=== PATIENT | female | born 1995 | race Two or more races ===

== ENCOUNTER 2019-12-30 19:33 | Observation (INO) | payer SELFPAY ==
[2019-12-30] MEDS ORDERED: IV RINGERS,LACTATED 1000ML 1,000 ML IV SCH (19:35)
[2019-12-30 20:07] LABS: BILIRUBIN,URINE NEGATIVE (NEG); COLOR,URINE YELLOW; NITRITE,URINE NEGATIVE (NEG); PROTEIN,URINE NEGATIVE (NEG-TRACE); UROBILINOGEN,URINE 0.2 mg/dL (0.2 mg/dL)
[2019-12-30 20:21] LABS: CLARITY,URINE CLEAR
[2019-12-30 20:23] LABS: BACTERIA,URINE FEW /HPF (0-FEW); RBC,URINE 0 /HPF (0-2); SQUAMOUS EPITHELIAL CELL,UR FEW /LPF; WBC,URINE 0 /HPF (0-4)
== END 2019-12-30 21:20 | disposition home or self-care (01) ==
LOC: 3 SO LND 19:33
PROVIDERS: ADMIT Obstetrics & Gynecology; ATTEND Obstetrics & Gynecology
DX: O36.8130 Decreased fetal movements, third trimester, not applicable or unspecified (principal); Z3A.36 36 weeks gestation of pregnancy
CPT/HCPCS: 81001; G0378; G0379; 59025

== ENCOUNTER 2020-01-09 16:50 | Inpatient (IN) | payer SELFPAY ==
[~2020-01-09] VITALS: Ht 154.9 cm; Wt 63.0 kg
[2020-01-09] MEDS ORDERED: IV RINGERS,LACTATED 1000ML 1,000 ML IV PRN (17:15)
[2020-01-09 17:25] LABS: BILIRUBIN,URINE NEGATIVE (NEG); CLARITY,URINE CLEAR; COLOR,URINE YELLOW; NITRITE,URINE NEGATIVE (NEG); PROTEIN,URINE NEGATIVE (NEG-TRACE)
[2020-01-09 17:35] LABS: BACTERIA,URINE FEW /HPF (0-FEW); SQUAMOUS EPITHELIAL CELL,UR MOD /LPF
[2020-01-09] MEDS ORDERED: ACETAMINOPHEN 500 MG TABLET PO PRN (19:30)
[2020-01-09] MEDS ORDERED: MAG HYDROX/ALUMINUM HYD/SIMETH 30 ML ORAL.SUSP PO PRN (19:30)
[2020-01-09] MEDS ORDERED: ONDANSETRON PF 4 MG/2 ML VIAL. IVP PRN (19:30)
[2020-01-09] MEDS ORDERED: diphenhydrAMINE HCL 25 MG CAPSULE PO PRN (19:30)
[2020-01-09] MEDS: IV RINGERS,LACTATED 1000ML 1,000 ML IV PRN ×2 (20:14→23:05)
[2020-01-09 20:26] LABS: BASO % 0 % (0-3); EOS # 0.2 x10^3/uL (0.0-0.7); EOS % 1 % (0-3); HEMATOCRIT 34.3 % (36.0-47.0); HEMOGLOBIN 11.6 g/dL (12.0-15.5); LYMPH # 2.7 x10^3/uL (1.0-4.8); LYMPH % 24 % (24-48); MEAN CORPUSCULAR HEMOGLOBIN 30 pg (25-35); MEAN CORPUSCULAR HGB CONC 34 g/dL (31-37); MEAN CORPUSCULAR VOLUME 87 fL (79-100); MONO # 0.9 x10^3/uL (0.0-1.1); MONO % 8 % (0-9); NEUT # 7.2 x10^3/uL (1.8-7.7); NEUT % 66 % (31-73); PLATELET COUNT 295 x10^3/uL (140-400); RED BLOOD COUNT 3.92 x10^6/uL (3.50-5.40); RED CELL DISTRIBUTION WIDTH 13.5 % (11.5-14.5)
[2020-01-09 20:39] LABS: ALBUMIN 2.6 g/dL (3.4-5.0); ALBUMIN/GLOBULIN RATIO 0.6 (1.0-1.7); CALCIUM 8.8 mg/dL (8.5-10.1); CREATININE 0.6 mg/dL (0.6-1.0); GFR 121.8; POTASSIUM 3.8 mmol/L (3.5-5.1); TOTAL BILIRUBIN 0.2 mg/dL (0.2-1.0); TOTAL PROTEIN 6.7 g/dL (6.4-8.2)
[2020-01-09 20:45] LABS: INFLUENZA A PATIENT NEGATIVE (NEGATIVE); INFLUENZA B PATIENT NEGATIVE (NEGATIVE)
[2020-01-09 21:59] VITALS: BP 110/65
[2020-01-09] MEDS ORDERED: LIDOCAINE 1% PF 30 ML VIAL. INJ PRN (22:30)
[2020-01-09] MEDS ORDERED: fentaNYL PF VIAL 100 MCG/2 ML VIAL IV PRN (22:30)
[2020-01-09] MEDS ORDERED: TERBUTALINE 1 MG/ML VIAL. SQ PRN (22:30)
[2020-01-09] MEDS ORDERED: 0.9 % SODIUM CHLORIDE 10 ML DISP.SYRIN. IV PRN (22:30)
[2020-01-09] MEDS ORDERED: IBUPROFEN 400 MG TABLET. PO PRN (22:30)
[2020-01-09] MEDS ORDERED: OXYTOCIN 30 UNIT/500 ML PREMIX 500 ML IV PRN (22:30)
[2020-01-09] MEDS ORDERED: PENICILLIN G K 5,000,000 UNIT in IV DEXTROSE 5% 100ML 100 ML IV ONE (23:00)
[2020-01-10] MEDS: PENICILLIN G K 2,500,000 UNIT in IV DEXTROSE 5% 50 ML IV SCH ×3 (03:06→11:24)
[2020-01-10] MEDS: IV RINGERS,LACTATED 1000ML 1,000 ML IV PRN (04:32)
--- NOTE | 2020-01-10 08:37 | PDOC1 ---
OB - History Hx of Present Care: Good Care Ultrasounds: Normal mid trimester US Obstetrical Complications: None Medical Complications: None Past Family/Social History * Past Medical, Surgical, Family and Obstetric Histories reviewed from chart. Rubella: Immune RPR/VDRL: Negative GBS Status: Positive HBsAG: Negative OB - Chief Complaint & HPI Date of Admission: Date of Admission: Jan 09, 2020 at 16:50 Chief Complaint/History : 2 Para: 1 EGA: 38 Reason for admission: active labor Admission Nurse Assessment Rev: Yes OB - Admission Exam Physical Exam Vitals: VS - Last 72 Hours, by Label Date Time Temp Pulse Resp B/P (MAP) Pulse Ox O2 Delivery O2 Flow Rate FiO2 01/09/20 23:40 18 01/09/20 23:05 18 01/09/20 21:59 98.0 112 18 110/65 (80) Room Air 98.0 HEENT: Normal Heart: Regular Rate Lungs: Clear Abdomen: Gravid, Non tender, Soft Extremities: Edema Reflexes: Normal Cervical Dilatation: 4cm Effacement: 75% Station: -3 Membranes: Intact Heart Rate: Normal Accelerations: Accelerations Present Decelerations: No decelerations Contractions on Admission: < 5 Minutes Apart Intensity: Firm Text A: 38 wks IUP GBS positive P: Admit for labor management. Start Pen G prophylaxis. SHAZIA BAUTISTA Jr, MD Jan 10, 2020 08:37
[2020-01-10] MEDS ORDERED: L&D EPIDURAL SYRINGE 50 ML ONE (09:10)
[2020-01-10] MEDS ORDERED: ROPIVacaine 0.2% PF 10 ML VIAL. ONE ×2 (09:10)
[2020-01-10] MEDS ORDERED: IV RINGERS,LACTATED 1000ML 1,000 ML IV SCH (09:17)
[2020-01-10] MEDS ORDERED: L&D EPIDURAL SYRINGE 50 ML EPID PRN (09:30)
[2020-01-10] MEDS ORDERED: NALOXONE 0.4 MG/ML VIAL. IV PRN (09:30)
[2020-01-10] MEDS ORDERED: ROPIVacaine 0.2% PF 10 ML VIAL. EPID PRN (09:30)
[2020-01-10] MEDS ORDERED: diphenhydrAMINE 50 MG/ML VIAL IV PRN (09:30)
[2020-01-10] MEDS ORDERED: BUPIVACAINE MPF 0.25% 30 ML VIAL. ONE (10:18)
[2020-01-10] MEDS ORDERED: ePHEDrine PF IN SALINE 50 MG/10 ML SYRINGE. IV ONE ×2 (10:26→16:00)
--- NOTE | 2020-01-10 13:04 | PDOC ---
VAGINAL DELIVERY DATE DATE: 01/10/20 TIME: 13:02 : 2 Para: 2 EGA: 38 VAGINAL DELIVERY: VTX VACCUM ASSISTED: No PLACENTA: Spontaneous 8/9 SEX: Male WEIGHT Weight [ pending ] Nuchal Cord: No Amniotic Fluid: Clear PAIN: Epidural EPISIOTOMY: No EXTENSION: Yes (Right vaginal laceration) REPAIRED WITH 2-0 vicryl EBL 400 ml COMPLICATIONS none Signs of Intrauterine Infectio: None Shoulder Dystocia: No SHAZIA BAUTISTA Jr, MD Jan 10, 2020 13:04
[2020-01-10] MEDS ORDERED: MMR per PROTOCOL. MC PRN (13:15)
[2020-01-10] MEDS ORDERED: diphenhydrAMINE HCL 25 MG CAPSULE PO PRN (13:15)
[2020-01-10] MEDS ORDERED: 0.9 % SODIUM CHLORIDE 10 ML DISP.SYRIN. IV PRN (13:15)
[2020-01-10] MEDS ORDERED: OXYTOCIN 30 UNIT/500 ML PREMIX 500 ML IV PRN (13:15)
[2020-01-10] MEDS ORDERED: ZOLPIDEM 5 MG TABLET. PO PRN (13:15)
[2020-01-10] MEDS ORDERED: ACETAMINOPHEN 325 MG TABLET. PO PRN (13:15)
[2020-01-10] MEDS ORDERED: PHENYLEPH/MINERAL OIL/PETROLAT RECTAL OINTMENT TUBE. RC PRN (13:15)
[2020-01-10] MEDS ORDERED: HYDROCORTISONE 1% TOPICAL OINTMENT 30GM TUBE. TP PRN (13:15)
[2020-01-10] MEDS ORDERED: SIMETHICONE 80 MG TAB.CHEW PO PRN (13:15)
[2020-01-10] MEDS ORDERED: MAG HYDROX/ALUMINUM HYD/SIMETH 30 ML ORAL.SUSP PO PRN (13:15)
[2020-01-10] MEDS ORDERED: BENZOCAINE 20% TOPICAL AEROSOL SPRAY 57GM CAN. TP PRN (13:15)
[2020-01-10] MEDS ORDERED: MAGNESIUM HYDROXIDE 2,400 MG/30 ML ORAL.SUSP. PO PRN (13:15)
[2020-01-10 15:20] VITALS: BP 110/63
[2020-01-10] MEDS: IBUPROFEN 400 MG TABLET. PO PRN ×2 (15:33→23:52)
[2020-01-10] MEDS ORDERED: BUPIVACAINE MPF 0.25% 30 ML VIAL. EPID ONE (16:00)
[2020-01-10 16:30] VITALS: BP 106/57
[2020-01-10] MEDS: oxyCODONE/APAP 5/325 1 TAB TABLET PO PRN (22:14)
[2020-01-10 22:19] VITALS: BP 106/72
[2020-01-11 04:08] VITALS: BP 100/70
[2020-01-11 05:21] LABS: BASO % 0 % (0-3); EOS # 0.1 x10^3/uL (0.0-0.7); EOS % 1 % (0-3); HEMATOCRIT 29.5 % (36.0-47.0); LYMPH # 3.8 x10^3/uL (1.0-4.8); LYMPH % 28 % (24-48); MEAN CORPUSCULAR HEMOGLOBIN 30 pg (25-35); MEAN CORPUSCULAR HGB CONC 34 g/dL (31-37); MEAN CORPUSCULAR VOLUME 88 fL (79-100); MONO # 1.5 x10^3/uL (0.0-1.1); MONO % 11 % (0-9); NEUT # 8.1 x10^3/uL (1.8-7.7); NEUT % 60 % (31-73); PLATELET COUNT 223 x10^3/uL (140-400); RED BLOOD COUNT 3.33 x10^6/uL (3.50-5.40); RED CELL DISTRIBUTION WIDTH 13.6 % (11.5-14.5); WHITE BLOOD COUNT 13.5 x10^3/uL (4.0-11.0)
--- NOTE | 2020-01-11 08:20 | PDOC ---
OB Progress Note Date of Service 01/11/20 Time of Evaluation 0820 Notes Pt. feeling well. No complaints. Lab Laboratory Tests Test 01/09/20 17:00 01/09/20 19:50 01/09/20 20:10 01/11/20 05:04 Urine Collection Type Unknown Urine Color Yellow Urine Clarity Clear Urine pH 7.0 Urine Specific [place] 1.015 Urine Protein Negative mg/dL (NEG-TRACE) Urine Glucose (UA) Negative mg/dL (NEG) Urine Ketones (Stick) Negative mg/dL (NEG) Urine Blood Negative (NEG) Urine Nitrite Negative (NEG) Urine Bilirubin Negative (NEG) Urine Urobilinogen Dipstick 1.0 mg/dL (0.2 mg/dL) Urine Leukocyte Esterase Trace (NEG) Urine RBC 1-2 /HPF (0-2) Urine WBC 1-4 /HPF (0-4) Urine Squamous Epithelial Cells Mod /LPF Urine Bacteria Few /HPF (0-FEW) White Blood Count 11.0 x10^3/uL (4.0-11.0) 13.5 x10^3/uL (4.0-11.0) Red Blood Count 3.92 x10^6/uL (3.50-5.40) 3.33 x10^6/uL (3.50-5.40) Hemoglobin 11.6 g/dL (12.0-15.5) 10.0 g/dL (12.0-15.5) Hematocrit 34.3 % (36.0-47.0) 29.5 % (36.0-47.0) Mean Corpuscular Volume 87 fL (79-100) 88 fL (79-100) Mean Corpuscular Hemoglobin 30 pg (25-35) 30 pg (25-35) Mean Corpuscular Hemoglobin Concent 34 g/dL (31-37) 34 g/dL (31-37) Red Cell Distribution Width 13.5 % (11.5-14.5) 13.6 % (11.5-14.5) Platelet Count 295 x10^3/uL (140-400) 223 x10^3/uL (140-400) Neutrophils (%) (Auto) 66 % (31-73) 60 % (31-73) Lymphocytes (%) (Auto) 24 % (24-48) 28 % (24-48) Monocytes (%) (Auto) 8 % (0-9) 11 % (0-9) Eosinophils (%) (Auto) 1 % (0-3) 1 % (0-3) Basophils (%) (Auto) 0 % (0-3) 0 % (0-3) Neutrophils # (Auto) 7.2 x10^3/uL (1.8-7.7) 8.1 x10^3/uL (1.8-7.7) Lymphocytes # (Auto) 2.7 x10^3/uL (1.0-4.8) 3.8 x10^3/uL (1.0-4.8) Monocytes # (Auto) 0.9 x10^3/uL (0.0-1.1) 1.5 x10^3/uL (0.0-1.1) Eosinophils # (Auto) 0.2 x10^3/uL (0.0-0.7) 0.1 x10^3/uL (0.0-0.7) Basophils # (Auto) 0.0 x10^3/uL (0.0-0.2) 0.0 x10^3/uL (0.0-0.2) Sodium Level 134 mmol/L (136-145) Potassium Level 3.8 mmol/L (3.5-5.1) Chloride Level 101 mmol/L (98-107) Carbon Dioxide Level 21 mmol/L (21-32) Anion Gap 12 (6-14) Blood Urea Nitrogen 8 mg/dL (7-20) Creatinine 0.6 mg/dL (0.6-1.0) Estimated GFR (Cockcroft-Gault) 121.8 BUN/Creatinine Ratio 13 (6-20) Glucose Level 76 mg/dL (70-99) Calcium Level 8.8 mg/dL (8.5-10.1) Total Bilirubin 0.2 mg/dL (0.2-1.0) Aspartate Amino Transf (AST/SGOT) 14 U/L (15-37) Alanine Aminotransferase (ALT/SGPT) 9 U/L (14-59) Alkaline Phosphatase 121 U/L (46-116) Total Protein 6.7 g/dL (6.4-8.2) Albumin 2.6 g/dL (3.4-5.0) Albumin/Globulin Ratio 0.6 (1.0-1.7) Treponema pallidum Antibody Nonreactive (Nonreactive) Influenza Type A Antigen Negative (NEGATIVE) Influenza Type B Antigen Negative (NEGATIVE) Laboratory Tests Test 01/11/20 05:04 White Blood Count 13.5 x10^3/uL (4.0-11.0) Red Blood Count 3.33 x10^6/uL (3.50-5.40) Hemoglobin 10.0 g/dL (12.0-15.5) Hematocrit 29.5 % (36.0-47.0) Mean Corpuscular Volume 88 fL (79-100) Mean Corpuscular Hemoglobin 30 pg (25-35) Mean Corpuscular Hemoglobin Concent 34 g/dL (31-37) Red Cell Distribution Width 13.6 % (11.5-14.5) Platelet Count 223 x10^3/uL (140-400) Neutrophils (%) (Auto) 60 % (31-73) Lymphocytes (%) (Auto) 28 % (24-48) Monocytes (%) (Auto) 11 % (0-9) Eosinophils (%) (Auto) 1 % (0-3) Basophils (%) (Auto) 0 % (0-3) Neutrophils # (Auto) 8.1 x10^3/uL (1.8-7.7) Lymphocytes # (Auto) 3.8 x10^3/uL (1.0-4.8) Monocytes # (Auto) 1.5 x10^3/uL (0.0-1.1) Eosinophils # (Auto) 0.1 x10^3/uL (0.0-0.7) Basophils # (Auto) 0.0 x10^3/uL (0.0-0.2) Medications Current Medications Ringer's Solution 1,000 ml @ 125 mls/hr Q8H PRN IV PER PROTOCOL; Start 01/09/20 at 17:15; Stop 01/11/20 at 00:06; Status DC Diphenhydramine HCl (Benadryl) 50 mg PRN QHS PRN PO INSOMNIA; Start 01/09/20 at 19:30 Ringer's Solution 1,000 ml @ 125 mls/hr CONT PRN PRN IV hydration Last administered on 01/10/20at 04:32; Start 01/09/20 at 19:30 Acetaminophen (Tylenol) 1,000 mg PRN Q6HRS PRN PO PAIN; Start 01/09/20 at 19:30; Stop 01/10/20 at 13:07; Status DC Ondansetron HCl (Zofran) 8 mg PRN Q8HRS PRN IVP NAUSEA/VOMITING; Start 01/09/20 at 19:30; Stop 01/11/20 at 00:06; Status DC Al Hydroxide/Mg Hydroxide (Mylanta Plus Xs) 30 ml PRN Q2HR PRN PO HEARTBURN / GAS; Start 01/09/20 at 19:30; Stop 01/11/20 at 00:06; Status DC Sodium Chloride (Normal Saline Flush) 3 ml QSHIFT PRN IV AFTER MEDS AND BLOOD DRAWS; Start 01/09/20 at 22:30; Stop 01/10/20 at 13:07; Status DC Fentanyl Citrate (Fentanyl 2ml Vial) 100 mcg PRN Q30MIN PRN IV Severe pain Last administered on 01/09/20at 23:05; Start 01/09/20 at 22:30; Stop 01/11/20 at 00:06; Status DC Terbutaline Sulfate (Brethine) 0.25 mg 1X PRN PRN SQ SEE COMMENTS; Start 01/09/20 at 22:30; Stop 01/10/20 at 22:29; Status DC Lidocaine HCl (Xylocaine 1% Pf 30ml Vial) 30 ml 1X PRN PRN INJ SEE COMMENTS; Start 01/09/20 at 22:30; Stop 01/11/20 at 00:06; Status DC Oxytocin/Sodium Chloride 500 ml @ 0 mls/hr CONT PRN PRN IV Post delivery bleeding Last administered on 01/10/20at 06:54; Start 01/09/20 at 22:30 Ibuprofen (Motrin) 800 mg PRN Q6HRS PRN PO MODERATE PAIN 4-6; Start 01/09/20 at 22:30; Stop 01/10/20 at 13:07; Status DC Penicillin G Potassium [id number] unit/Dextrose 100 ml @ 100 mls/hr 1X ONCE IV Last administered on 01/09/20at 23:06; Start 01/09/20 at 23:00; Stop 01/09/20 at 23:59; Status DC Penicillin G Potassium [id number] unit/Dextrose 50 ml @ 100 mls/hr Q4H IV Last administered on 01/10/20at 11:24; Start 01/10/20 at 03:00; Stop 01/11/20 at 00:06; Status DC Fentanyl Citrate 50 ml @ As Directed STK-MED ONCE .ROUTE ; Start 01/10/20 at 09:10; Stop 01/10/20 at 09:10; Status DC Ropivacaine (Naropin 0.2%) 10 ml STK-MED ONCE .ROUTE ; Start 01/10/20 at 09:10; Stop 01/10/20 at 09:11; Status DC Ringer's Solution 1,000 ml @ 1,000 mls/hr Q1H IV Last administered on 01/10/20at 11:25; Start 01/10/20 at 09:17; Stop 01/10/20 at 10:16; Status DC Naloxone HCl (Narcan) 0.04 mg PRN Q1MIN PRN IV SEE COMMENTS; Start 01/10/20 at 09:30; Stop 01/11/20 at 00:06; Status DC Fentanyl Citrate 50 ml @ 14 mls/hr CONT PRN EPID PAIN Last administered on 01/10/20at 11:30; Start 01/10/20 at 09:30; Stop 01/11/20 at 00:06; Status DC Diphenhydramine HCl (Benadryl) 12.5 mg PRN Q2HR PRN IV ITCHING; Start 01/10/20 at 09:30; Stop 01/11/20 at 00:06; Status DC Ropivacaine (Naropin 0.2%) 20 ml 1X PRN PRN EPID PER ANESTHESIA; Start 01/10/20 at 09:30; Stop 01/11/20 at 00:06; Status DC Bupivacaine HCl (Sensorcaine Mpf 0.25%) 30 ml STK-MED ONCE .ROUTE ; Start 01/10/20 at 10:18; Stop 01/10/20 at 10:18; Status DC Ephedrine Sulfate (ePHEDrine PF IN SALINE SYRINGE) 50 mg STK-MED ONCE IV ; Start 01/10/20 at 10:26; Stop 01/10/20 at 10:26; Status DC Sodium Chloride (Normal Saline Flush) 10 ml QSHIFT PRN IV AFTER MEDS AND BLOOD DRAWS; Start 01/10/20 at 13:15 Oxytocin/Sodium Chloride 500 ml @ 62.5 mls/hr CONT PRN IV SEE I/O RECORD; Start 01/10/20 at 13:15; Stop 01/10/20 at 21:14; Status DC Acetaminophen (Tylenol) 650 mg PRN Q6HRS PRN PO MILD PAIN / TEMP; Start 01/10/20 at 13:15 Ibuprofen (Motrin) 800 mg PRN Q8HRS PRN PO INFLAMMATION/PAIN PREVENTION Last administered on 01/10/20at 23:52; Start 01/10/20 at 13:15 Docusate Sodium (Colace) 100 mg PRN BID PRN PO CONSTIPATION; Start 01/10/20 at 13:15 Magnesium Hydroxide (Milk Of Magnesia) 2,400 mg PRN DAILY PRN PO CONSTIPATION; Start 01/10/20 at 13:15 Al Hydroxide/Mg Hydroxide (Mylanta Plus Xs) 30 ml PRN Q4HRS PRN PO HEARTBURN / GAS; Start 01/10/20 at 13:15 Simethicone (Gas-X) 80 mg PRN AFTMEALHC PRN PO GAS / BLOATING; Start 01/10/20 at 13:15 Diphenhydramine HCl (Benadryl) 25 mg PRN Q6HRS PRN PO ITCHING; Start 01/10/20 at 13:15; Stop 01/11/20 at 00:06; Status DC Benzocaine (Americaine) 1 spray PRN QID PRN TP TOPICAL PAIN Last administered on 01/10/20at 15:33; Start 01/10/20 at 13:15 Phenyleph/Shark Oil/Min Oil/Petrol (Preparation H) 1 ana PRN QID PRN RC RECTAL PAIN; Start 01/10/20 at 13:15 Hydrocortisone (Cortaid) 1 ana PRN QID PRN TP PERINEAL PAIN; Start 01/10/20 at 13:15 Ferrous Sulfate (Feosol) 325 mg BIDWMEALS PO ; Start 01/10/20 at 17:00 Zolpidem Tartrate (Ambien) 5 mg PRN QHS PRN PO INSOMNIA, MAY REPEAT X1; Start 01/10/20 at 13:15 Info (Do NOT chart on this placeholder) 1 ea 1X PRN PRN MC SEE COMMENTS; Start 01/10/20 at 13:15; Stop 01/11/20 at 00:06; Status DC Info (Do NOT chart on this placeholder) 1 ea 1X PRN PRN MC SEE COMMENTS; Start 01/10/20 at 13:15; Stop 01/11/20 at 00:06; Status DC Oxycodone/ Acetaminophen (Percocet 5/325) 2 tab PRN Q4HRS PRN PO MODERATE PAIN, SEVERE PAIN Last administered on 01/10/20at 22:14; Start 01/10/20 at 13:15 Bupivacaine HCl (Sensorcaine Mpf 0.25%) 30 ml 1X ONCE EPID Last administered on 01/10/20at 15:59; Start 01/10/20 at 16:00; Stop 01/11/20 at 00:06; Status DC Ephedrine Sulfate (ePHEDrine PF IN SALINE SYRINGE) 50 mg 1X ONCE IV Last administered on 01/10/20at 15:59; Start 01/10/20 at 16:00; Stop 01/11/20 at 00:06; Status DC Exam Abd: soft, non tender, fundus firm Assessment PPD#1 s/p Plan of Care: Continue current Tx, Mgmt SHAZIA BAUTISTA Jr, MD Jan 11, 2020 08:20
[2020-01-11 08:45] VITALS: BP 107/65
[2020-01-11] MEDS: DOCUSATE SODIUM 100 MG CAPSULE. PO PRN ×2 (09:17→20:18)
[2020-01-11] MEDS: FERROUS SULFATE 325 MG TABLET. PO SCH ×3 (09:19→17:00)
[2020-01-11] MEDS: IBUPROFEN 400 MG TABLET. PO PRN ×2 (09:19→16:25)
[2020-01-11 16:15] VITALS: BP 87/47
[2020-01-11] MEDS: oxyCODONE/APAP 5/325 1 TAB TABLET PO PRN (20:07)
[2020-01-11 22:31] VITALS: BP 108/78
[2020-01-12] MEDS: IBUPROFEN 400 MG TABLET. PO PRN ×2 (02:03→09:43)
[2020-01-12 06:04] VITALS: BP 117/63
--- NOTE | 2020-01-12 07:48 | PDOC3 ---
OB DISCHARGE SUMMARY DATE OF ADMISSION: 01/10/20 DATE OF DISCHARGE: 01/12/20 REASON FOR ADMISSION: Onset of labor INTRAPARTUM PROCEDURES: Spontanous Vag Deliv DISCHARGE DIAGNOSIS: Term Delivered DISCHARGE INFORMATION: Activity (ad rosmery), Diet (regular), Instructions (pelvic rest x 6 wks) HOSPITAL COURSE Term gestation delivered vaginally without complications. SHAZIA BAUTISTA Jr, MD Jan 12, 2020 07:48
[2020-01-12] MEDS ORDERED: IBUP-1027 PO (07:49)
--- NOTE | 2020-01-12 07:49 | DISCH ---
DISCHARGE INSTRUCTIONS Condition on Discharge Condition on Discharge: Stable Activity After Discharge Activity Instructions for Disc: Activity as tolerated Lifting Instructions after Dis: No heavy lifting Driving Instructions after Dis: Do not drive today Diet after Discharge Diet after Discharge: Regular Contacting the DRLyle after DC Call your doctor for: Concerns you may have Follow-Up Follow up with: Erna in 6 wks SHAZIA BAUTISTA Jr, MD Jan 12, 2020 07:49
[2020-01-12] MEDS: FERROUS SULFATE 325 MG TABLET. PO SCH (09:43)
[2020-01-12 09:44] VITALS: BP 91/58
[2020-01-12] MEDS: DOCUSATE SODIUM 100 MG CAPSULE. PO PRN (09:44)
[2020-01-12 14:20] VITALS: BP 104/65
--- NOTE | 2020-01-12 14:30 | NUR ---
Discharge and follow up instructions reviewed with pt. Pt denied any questions at time of discharge. Pt taken out of hospital per W/C.
== END 2020-01-12 14:30 | disposition home or self-care (01) | DRG 807 ==
LOC: 3 SO LND 16:50 → OBSVTOIN 16:50 → 3 NORTH 01-10 16:30
PROVIDERS: ADMIT Obstetrics & Gynecology; ATTEND Obstetrics & Gynecology
PROC: 10E0XZZ Delivery of Products of Conception, External Approach (ICD-10-PCS; principal; 2020-01-09)
PROC: 3E0R3BZ Introduction of Anesthetic Agent into Spinal Canal, Percutaneous Approach (ICD-10-PCS; 2020-01-09)
PROC: 00HU33Z Insertion of Infusion Device into Spinal Canal, Percutaneous Approach (ICD-10-PCS; 2020-01-09)
PROC: 0UQGXZZ Repair Vagina, External Approach (ICD-10-PCS; 2020-01-09)
DX: O99.824 Streptococcus B carrier state complicating childbirth (principal); Z37.0 Single live birth; Z3A.38 38 weeks gestation of pregnancy; O71.4 Obstetric high vaginal laceration alone
CPT/HCPCS: 36415; 80053; 81001; 85025; 86592; 86850; 86900; 86901; 87086; 87186; 87653; 87804; 96365; 96366; 96368; 96375; J0171; J2540; J2590; J2795; J3010; J3490; J7120; 99285-25; G0378